=== PATIENT | female | born 1985 | race Caucasian/White ===

== ENCOUNTER 2021-02-13 10:43 | Outpatient (REF) | payer BC, SELFPAY ==
[2021-02-13 14:07] LABS: Calculated LDL 138 mg/dL (<100); Cholesterol 228 mg/dL (<200); HDL Cholesterol 70 mg/dL (40-60); Triglyceride 102 mg/dL (<150)
== END 2021-02-13 10:44 | disposition home or self-care (01) ==
LOC: NCHCN 10:43
PROVIDERS: Visit Provider Family Medicine
DX: Z00.00 Encounter for general adult medical examination without abnormal findings (principal); Z13.220 Encounter for screening for lipoid disorders
CPT/HCPCS: 80061

== ENCOUNTER 2022-05-07 11:00 | Outpatient (REF) | payer SELFPAY ==
--- NOTE | 2022-05-07 16:45 | PAPFT_PTH ---
PATIENT: Catrina Braun LOC: [facility] U#:[id number] AGE/SX: 36/F ROOM: RE05/07/[address]: Feng Naranjo : 1985 BED: DIS: 05/07/2022 SPEC #: [id number] RECD: 05/08/22 12:46 STATUS: LENORA REMendel #: [id number] MARY: 05/07/22 16:[address]: Fegn Naranjo DEPT: [facility] Cytology RECD BY: Juanis Arce Tissues: 1 - CX/ENDOCX FOR PAP SMEARS Procedures: PAP THIN PREP/UVM Screening HPV DNA PROBE Comments: [id number]
== END 2022-05-07 11:01 | disposition home or self-care (01) ==
LOC: NCHCN 11:00
PROVIDERS: Visit Provider Family Medicine
DX: Z00.00 Encounter for general adult medical examination without abnormal findings (principal); Z12.4 Encounter for screening for malignant neoplasm of cervix
CPT/HCPCS: 88142; 87624

== ENCOUNTER 2022-06-25 09:23 | Outpatient (REF) | payer SELFPAY ==
--- NOTE | 2022-06-25 09:10 | ENDO_PTH ---
PATIENT: Catrina Braun LOC: [facility] U#:[id number] AGE/SX: 36/F ROOM: RE06/25/[address]: Lorna Sandoval : 1985 BED: DIS: 06/25/2022 SPEC #: [id number] RECD: 06/25/22 12:14 STATUS: LENORA CARTER #: [id number] MARY: 06/25/22 09:[address]: Lorna Sandoval DEPT: Surgical Specimen RECD BY: Juanis Arce Tissues: 1 - ENDOCERVICAL BX/CURRETTE 2 - CERVICAL BIOPSY Procedures: GROSS AND MICRO LEVEL 4 IMMUNOPEROXIDASE STAIN P16 IPEX Comments: [id number]
== END 2022-06-25 09:24 | disposition home or self-care (01) ==
LOC: LBN 09:23
PROVIDERS: Visit Provider Obstetrics & Gynecology Gynecology
DX: N87.1 Moderate cervical dysplasia (principal); N72 Inflammatory disease of cervix uteri; R87.612 Low grade squamous intraepithelial lesion on cytologic smear of cervix (LGSIL)
CPT/HCPCS: 88305; 88342; 88361

== ENCOUNTER 2022-12-24 12:38 | Outpatient (CLI) | payer OTHER, SELFPAY ==
[2022-12-24 12:39] LABS: Panorama Kit Sent via Fed Ex
[2022-12-24 12:45] LABS: Abs Immature Grans 0.02 10^3/uL (0.0-0.06); Absolute Basophil Count 0.05 10^3/uL (0.0-0.2); Absolute Eosinophil Count 0.05 10^3/uL (0.0-0.7); Absolute Lymphocyte Count 2.14 10^3/uL (1.2-3.4); Absolute Monocyte Count 0.49 10^3/uL (0.1-0.8); Absolute Neutrophil Count 5.09 10^3/uL (1.2-6.7); Basophils % 0.6; Eosinophils % 0.6; HCT 36.1 % (36.0-46.0); HGB 12.5 g/dL (11.2-15.7); Immature Grans % 0.3; Lymphocytes % 27.3; MCH 30.6 pg (27.0-33.0); MCHC 34.6 % (32.0-36.0); MCV 88 fL (80-95); MPV 9.9 fL (8.0-11.0); Monocytes % 6.3; Neutrophils % 64.9; Platelet Count 270 10^3/uL (130-400); RBC 4.09 10^6/uL (3.93-5.22); RDW 12.8 % (11.7-14.6); RDW-SD 41.3 fL; WBC 7.84 10^3/uL (4.4-10.8)
[2022-12-25 08:48] LABS: Hepatitis B Surface Ag Negative (Negative)
[2022-12-25 09:45] LABS: HIV-1/2 Ag & Ab Screen Negative (Negative)
[2022-12-25 10:11] LABS: Hepatitis C Ab w Rflx HCV PCR Negative (Negative)
[2022-12-25 10:45] LABS: Varicella IgG Antibody Negative (See Note)
[2022-12-25 10:49] LABS: Rubella IgG Ab (UVM) Positive (See Note)
[2022-12-26 14:40] LABS: Syphilis IgG w/Reflex Nonreactive (Nonreactive)
== END 2022-12-24 12:39 | disposition home or self-care (01) ==
LOC: LBO 12:39
PROVIDERS: PCP Family Medicine; Visit Provider Advanced Practice Midwife
DX: O09.511 Supervision of elderly primigravida, first trimester (principal); Z3A.13 13 weeks gestation of pregnancy
CPT/HCPCS: 36415; 86787; 86803; 86850; 86900; 86901; 87340; 87389; 85025; 86762; 86780

== ENCOUNTER 2022-12-24 14:02 | Outpatient (REF) | payer OTHER, SELFPAY ==
[2022-12-24 19:56] LABS: *AMPHETAMINES SCREEN URINE Negative (Negative); *BARBITURATES SCREEN URINE Negative (Negative); *BENZODIAZEPINES SCREEN URINE Negative (Negative); Cannabinoids THC Negative (Negative); Cocaine Screen,Urine Negative (Negative); METHADONE URINE SCREEN Negative (Negative); OPIATES URINE SCREEN Negative (Negative)
[2022-12-24 20:09] LABS: Tricyclic Antidepressants Negative (Negative)
[2022-12-31 19:14] LABS: Buprenorphine Negative ng/mL (Cutoff: 5.0); Norbuprenorphine Negative ng/mL (Cutoff: 2.5)
== END 2022-12-24 14:03 | disposition home or self-care (01) ==
LOC: LBN 14:02
PROVIDERS: PCP Family Medicine; Visit Provider Advanced Practice Midwife
DX: O09.511 Supervision of elderly primigravida, first trimester (principal); Z3A.13 13 weeks gestation of pregnancy
CPT/HCPCS: 80307; 80348; 87086

== ENCOUNTER 2023-02-21 08:59 | Outpatient (REF) | payer OTHER, SELFPAY ==
[2023-02-22 13:56] LABS: Chlamydia Result Negative (Negative); GC Result Negative (Negative)
== END 2023-02-21 09:00 | disposition home or self-care (01) ==
LOC: LBN 08:59
PROVIDERS: PCP Family Medicine; Visit Provider Advanced Practice Midwife
DX: Z34.92 Encounter for supervision of normal pregnancy, unspecified, second trimester (principal); Z3A.21 21 weeks gestation of pregnancy; Z11.3 Encounter for screening for infections with a predominantly sexual mode of transmission
CPT/HCPCS: 87491; 87591

== ENCOUNTER 2023-04-05 10:45 | Outpatient (CLI) | payer OTHER, SELFPAY ==
[2023-04-05 08:23] LABS: HCT 33.9 % (36.0-46.0); HGB 11.5 g/dL (11.2-15.7); MCH 30.5 pg (27.0-33.0); MCHC 33.9 % (32.0-36.0); MCV 90 fL (80-95); Platelet Count 252 10^3/uL (130-400); RBC 3.77 10^6/uL (3.93-5.22); RDW 13.5 % (11.7-14.6); RDW-SD 44.9 fL; WBC 9.65 10^3/uL (4.4-10.8)
[2023-04-05 08:36] LABS: Glucose,1 Hr (Glucola) 131 mg/dL (80-140)
== END 2023-04-05 10:46 | disposition home or self-care (01) ==
LOC: LBO 10:45
PROVIDERS: PCP Family Medicine; Visit Provider Advanced Practice Midwife
DX: O09.512 Supervision of elderly primigravida, second trimester (principal); Z3A.27 27 weeks gestation of pregnancy
CPT/HCPCS: 36415; 82950; 85027

== ENCOUNTER 2023-05-29 10:21 | Outpatient (REF) | payer OTHER, SELFPAY ==
[2023-05-29 11:00] LABS: *AMPHETAMINES SCREEN URINE Negative (Negative); *BARBITURATES SCREEN URINE Negative (Negative); *BENZODIAZEPINES SCREEN URINE Negative (Negative); Cannabinoids THC Negative (Negative); Cocaine Screen,Urine Negative (Negative); METHADONE URINE SCREEN Negative (Negative); OPIATES URINE SCREEN Negative (Negative)
[2023-05-29 11:01] LABS: Tricyclic Antidepressants Negative (Negative)
[2023-06-04 08:20] LABS: Buprenorphine Negative ng/mL (Cutoff: 5.0); Norbuprenorphine Negative ng/mL (Cutoff: 2.5)
== END 2023-05-29 10:22 | disposition home or self-care (01) ==
LOC: LBN 10:21
PROVIDERS: PCP Family Medicine; Visit Provider Advanced Practice Midwife
DX: Z34.93 Encounter for supervision of normal pregnancy, unspecified, third trimester (principal)
CPT/HCPCS: 80307; 80348

== ENCOUNTER 2023-06-07 08:51 | Outpatient (REF) | payer OTHER, SELFPAY | END 2023-06-07 08:52 | disposition home or self-care (01) | LOC: LBN 08:51 | PROVIDERS: PCP Family Medicine; Visit Provider Advanced Practice Midwife | DX: Z34.93 Encounter for supervision of normal pregnancy, unspecified, third trimester (principal); Z36.85 Encounter for antenatal screening for Streptococcus B; Z3A.36 36 weeks gestation of pregnancy | CPT/HCPCS: 87081 ==

== ENCOUNTER → 2023-07-05 01:34 | Outpatient (CLI) | payer OTHER, SELFPAY ==
--- NOTE | 2023-07-05 07:15 | DI.US_ITS ---
Exam(s) US OB ELIO WEIGHT EXAM: US OB ELIO WEIGHT CLINICAL HISTORY: 41 wks, POST DATES, ELDERLY PRIMIGRAVIDA, O48.0, O09.519. TECHNIQUE: Transabdominal obstetrical ultrasound performed. COMPARISON: US POCUS EXAM from 11/22/2022 US US OB 2-3 TRIMESTER from 02/13/2023 FINDINGS:: Number of fetuses: One. position: Vertex. Placental location: Anterior no evidence of previa. BIOMETRIC DATA: BPD: 100mm = 41+1 weeks HC: 356mm = 41+4 weeks AC: 370mm = 40+ 6 weeks FL: 80 mm = 40+ 6 weeks EFW: 4262 Gms = 85% Composite Age: 40 1+1 weeks JACKI: 01 July 2023 Heart Rate: 133BPM Amniotic fluid index: 13.5 cm. Amount of fluid is visually within normal limits. IMPRESSION: size and weight are within the expected range. Post dates. DATA REPOSITORY:
== END ==
PROVIDERS: PCP Family Medicine; Visit Provider Advanced Practice Midwife
DX: O09.519 Supervision of elderly primigravida, unspecified trimester (principal); O48.0 Post-term pregnancy
CPT/HCPCS: 76816

== ENCOUNTER 2023-07-05 09:01 | Outpatient (CLI) | payer OTHER, SELFPAY ==
[2023-07-05 09:49] VITALS: BP 133/92; PULSE 76; TEMP 36.8
[2023-07-05 10:08] VITALS: BP 133/92; PULSE 76
[2023-07-05 10:30] VITALS: BP 127/84; PULSE 82
--- NOTE | 2023-07-05 11:15 | W.OBNST ---
Date of service: 07/05/23 Time of Service: 10:45 NST Evaluation Reason for NST Reasons for Nonstress Test: POSTDATES Gestational Age Gestational Age in Weeks and Days: 40 Weeks and 6Days Test and Monitor Explained Test/Monitor Explained: Test Explained, Monitor Explained and Patient Verbalized Understanding Vital Signs Blood Pressure: 133/92 Pulse: 76 Temperature: 98.2 F Urine Results Urine Protein: Negative Urine Ketones: Negative Urine Glucose: Negative Urine Blood: Positive NST Information Date on Monitor: 07/05/23 Time on Monitor: 09:50 Date off Monitor: 07/05/23 Time off Monitor: 10:28 Total Time on Monitor: 38 NST Interventions: PO Hydration NST Evaluation Patient States Movement: Present FHR Baseline: 135 Variability: Moderate 6-25 bpm Accelerations: 15x15 Decelerations: None NST Results: Reactive Note Ultrasound Done: N/A. NST Note Note: ELIO today normal range, EFW 4200. IOL scheduled for 07/13/23. Membranes swept today. Repeat BP 127/84. NST Reviewed and Verified by: Shaniqua Rider
[2023-07-05 11:16] VITALS: BP 133/92; PULSE 76; TEMP 36.8
== END 2023-07-05 10:35 | disposition home or self-care (01) ==
LOC: BCD 09:02 → OBS 09:48
PROVIDERS: PCP Family Medicine; Visit Provider Advanced Practice Midwife
DX: O48.0 Post-term pregnancy (principal); Z3A.40 40 weeks gestation of pregnancy
CPT/HCPCS: 59025

== ENCOUNTER 2023-07-09 11:20 | Outpatient (CLI) | payer OTHER, SELFPAY ==
[2023-07-09 14:14] VITALS: BP 132/89; PULSE 87; TEMP 36.8
[2023-07-09 14:25] VITALS: BP 132/89; PULSE 87
--- NOTE | 2023-07-09 15:36 | PDOC.NST_ITS ---
Date of service: 07/09/23 Time of Service: 15:36 NST Evaluation Reason for NST Reasons for Nonstress Test: POSTDATES Gestational Age Gestational Age in Weeks and Days: 41 Weeks and 3Days Test and Monitor Explained Test/Monitor Explained: Test Explained, Monitor Explained and Patient Verbalized Understanding Vital Signs Blood Pressure: 132/89 Pulse: 87 Temperature: 98.2 F NST Information Date on Monitor: 07/09/23 Time on Monitor: 14:05 Date off Monitor: 07/09/23 Time off Monitor: 14:48 Total Time on Monitor: 43 NST Interventions: None NST Evaluation Patient States Movement: Present FHR Baseline: 135 Variability: Moderate 6-25 bpm Accelerations: 15x15 Decelerations: None NST Results: Reactive Note Ultrasound Done: N/A. NST Note Note: Catrina is here for NST for post dates. She was considering induction of labor t omorrow at 41 +4 days but is considering waiting until 07/12. We discussed risks of postdates including meconium fluid and placental insufficiency and risks and disadvabtages of induction. SVE performed. 2 cms/60%/-1. Catrina will call tomorrow at 1200 and will schedule induction at that time. NST Reviewed and Verified by: Shaniqua Treadwell
[2023-07-09 15:39] VITALS: BP 132/89; PULSE 87; TEMP 36.8
== END 2023-07-09 15:02 | disposition home or self-care (01) ==
LOC: BCD 11:23 → OBS 14:12
PROVIDERS: PCP Family Medicine; Visit Provider Advanced Practice Midwife
DX: O48.0 Post-term pregnancy (principal); Z3A.41 41 weeks gestation of pregnancy
CPT/HCPCS: 59025

== ENCOUNTER 2023-07-12 04:11 | Inpatient (IN) | payer OTHER, SELFPAY ==
[2023-07-12] VITALS (12 sets, daily range): BP systolic 113–161; BP diastolic 65–91; PULSE 74–111; RESP 18; TEMP 36.5–37.3
[2023-07-12 04:58] LABS: HCT 37.2 % (36.0-46.0); HGB 12.6 g/dL (11.2-15.7); MCH 29.7 pg (27.0-33.0); MCHC 33.9 % (32.0-36.0); MCV 88 fL (80-95); MPV 11.1 fL (8.0-11.0); Platelet Count 240 10^3/uL (130-400); RBC 4.24 10^6/uL (3.93-5.22); RDW 14.2 % (11.7-14.6); RDW-SD 45.6 fL; WBC 8.48 10^3/uL (4.4-10.8)
--- NOTE | 2023-07-12 06:29 | HPE_ITS ---
Date of service: 07/12/23 Time of Service: 06:29 Assessment and Plan Assessment and plan (1) Post-dates : Status: Acute Assessment and plan: admit to the Center. Comfort measures. Catrina requested to use the tub. (2) Spontaneous onset of labor: Status: Acute Assessment and plan: Comfort measures. Anticipate OB-HPI Labor/Delivery History of Present Illness Reason for Visit: RULE OUT LABOR Chief Complaint: Uterine Contractions. JACKI Calculator Estimated Delivery Date Method Current WG Current Estimate 06/29/23 LMP (Certain) 41w 6d Other Estimates 06/27/23 Ultrasound #1 42w 1d Comments: Catrina called at 0300 and reported contractions every 4-5 minutes. History of Present Expected Delivery Route/Plan - CNM FOB - Tom Braun (first child) BB no circ Varicella non immune, pt accepts vaccine PP GBS negative Specific Issues/Plan 1. AMA, requests cfDNA, declines Level II US and MFM visit, declines CF/SMA and AFP 1a. cfDNA results: low risk male 2. Covid at 10 weeks gestation, due to Nullip, >35 and COVID will take low dose ASA 3. Colpo with LGSIL 06/2022, declines pap will do PP 4. Anatomy scan reveals 5 mm RESIDENT INSPECTOR, a benign finding when cfDNA is low risk. Discussed w/pt, declines level 2 5. Significant hemorrhoids: OTC remedies, ice, topical spray, Proctofoam, consult ordered to general surgery, consider IOL >39 wks 5a. Hemorrhoids have improved and Catrina does not feel that an induction is indicated at this time. Assessment: History Reviewed & Current PFSH All Active Problems (Updated 07/12/23 @ 06:31 by Shaniqua Treadwell CNM) Spontaneous onset of labor (Acute) Post-dates (Acute) Acute hemorrhoid (Acute) Susceptible to varicella (non-immune), currently (Acute) Elderly primigravida (Acute) (Acute) Abnormal Papanicolaou smear of cervix with positive human papilloma virus (HPV) test (Acute) 04/2022. Colpo bx 06/2022: SUKUMAR-2. Patient wishes to defer LEEP until after anticipated . Medical History (Updated 07/12/23 @ 06:31 by Shaniqua Treadwell CNM) Missed menses Family History (Updated 12/24/22 @ 11:44 by Shaniqua Rider CNM) Mother Asthma Cancer Hypertension Maternal Grandmother Cancer basil cell carcinoma of fact Paternal Grandfather Dementia Maternal Grandfather Colon cancer Father Depression Diabetes Hypertension Other Breast cancer Social History Smoking/Tobacco Use Status: Never Smoking risk assessment performed?: Yes Alcohol Intake: current Alcohol Intake frequency: 0-2 drinks per day Counseling given: Yes (by PCP at [facility] Drug use: Never Substance use type: does not use Household members: spouse Housing: house Number of Children: 0 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 Do you feel safe at home: Yes Do you feel safe in your relationship?: Yes History History 1 Para 0 Hx # Term Pregnancies 0 Multiple births 0 Hx # Pregnancies 0 Ectopic pregnancies 0 AB induced 0 Hx Number of Living Children 0 AB spontaneous 0 Meds Allergies and Home Medications Allergies Allergy/AdvReac Type Severity Reaction Status Date / Time No Known Drug Allergies Allergy Verified 07/05/23 09:46 Home Medications Medication Instructions Recorded Confirmed Type folic acid 0.8 mg capsule 0.8 mg PO DAILY 06/25/22 07/12/23 History prenat.vits,jenaro,idf-naoa-lfbgm 1 tab PO DAILY 11/16/22 07/12/23 History aspirin 81 mg tablet,delayed 81 mg PO DAILY 02/21/23 07/12/23 History release (Adult Low Dose Aspirin) benzocaine 20 % mucosal aerosol 1 applic mucous membrane TID #57 06/07/23 07/12/23 Rx spray grams hydrocortisone 1 %-pramoxine 1 % 1 applic MD QID #10 grams 06/07/23 07/12/23 Rx rectal foam (Proctofoam HC) lidocaine 3 %-hydrocortisone 2.5 % 1 applic MD QD-BID PRN hemorrhoids 06/14/23 07/12/23 Rx (7 gram) rectal gel #7 grams Exam Physical Exam Vital signs: Temp Pulse Resp BP 97.7 F 80 18 126/87 07/12/23 04:34 07/12/23 04:34 07/12/23 04:34 07/12/23 04:34 Constitutional Constitutional: no acute distress and mild distress Detailed Labor and Delivery Exam Dilation: 5 Effacement (%): 100 station: -1 Cervix position: mid Consistency: medium Leiva Score: Cervical Points Exam 0 1 2 3 Dilation Closed 1-2cm 3-4 cm 5-6cm Effacement 0-30% 40-50% 60-70% 80% Consistency Firm Medium Soft Station -3 -2 -1,0 +1,+2 Position Posterior Mid Anterior Amniotic Membrane Status: Intact Monitor Mode: External Contraction Frequency(min): every 4-6 Contraction Duration(sec): 40-60 Contraction Intensity: Mild/Moderate Fetus A Heart Rate Baseline: 130 Monitor Accelerations: 15 X 15 Monitor Decelerations: None Variability: Moderate (6-25 BPM) Categories: Category I Respiratory Exam Respiratory Exam: Normal Cardiovascular Exam Cardiovascular Exam: Normal Abdominal Exam Abdominal Exam: Normal Exam Exam: Normal Extremities Exam Extremities Exam: Normal Skin Exam Skin Exam: Normal Psychiatric Exam Psychiatric Exam: Normal Results Abnormal Lab Findings: Abnormal Labs 07/12/23 04:45 MPV 11.1 H Risk Assessment Risk for Shoulder Dystocia Historical/Initial OB: NEGATIVE FOR: Pelvic Abnormality, Pre- BMI>30, Previous Shoulder Dystocia or Previous Macrosomia 36 Weeks: NEGATIVE FOR: Current Gestational DM, EFW>4500gms or Maternal Weight Gain>40lbs 40 Weeks: POSTIVE FOR: Post Dates; NEGATIVE FOR: EFW> 4500 gms or Maternal Weight Gain >40lb Increased Risk?: Yes Delivery Plan @ 40 wks: IOL at 41w5d as patient declines sooner. KH Risk for Pre-Eclampsia Daily Dose ASA Indicated: Yes Date Initiated/Initials: taking aspirin Yes, if one or more: NEGATIVE FOR: Hx Pre-E/Gest HTN, Chronic HTN, Multiple Gestation, Pre-gestational DM, Renal Disease, Systemic Lupus or APA Syndrome Yes, if 2 or more: POSITIVE FOR: Nulliparity and Age>= 35 yrs Risk for Post- Hemorrhage Initial: NEGATIVE FOR: Multiple Gestation, Previous PPH, Known Clotting Deficiency, Grand Multiparity or Anticoagulation 40 Weeks: NEGATIVE FOR: Anemia, hgb<10, Low platelets (thrombocytopenia), Gestation HTN or Pre-E, Polyhydraminios or EFW>4500gms At Risk?: No Risks Reviewed Risks Reviewed Upon Admission: Yes
--- NOTE | 2023-07-12 11:58 | W.PM.OBNL1 ---
Date of service: 07/12/23 Time of Service: 11:58 Pelvic Exam Dilation: 6 Effacement (%): 100 station: -2 Cervix Position: mid Contractions Monitor Mode: External Contraction Frequency(min): q2-4 Contraction Duration(sec): 50-70 Intensity: Moderate Fetus A Monitor: External (US) Heart Rate Baseline: 140 Variability: Moderate (6-25 BPM) Categories: Category I Accelerations: Present Decelerations: None Amniotic Membrane Status: Intact Assessment and Plan Assessment and plan (1) Spontaneous onset of labor: Status: Acute Assessment and plan: A: G1 @ 41+6 wks, spontaneous labor GBS negative, low risk for SD and PPH Category 1 tracing P: Has advanced to 6/100% vtx -2, intact membranes w/soft forebag Coping well with contractions, providing effective support Discussed AROM to encourage progress, pt considering Continue intermittent auscultation, comfort measures as pt desires Reassess for progress this afternoon Anticipate (2) Post-dates : Status: Acute Qualifiers: Post-term type: 40-42 weeks gestation Qualified Code(s): O48.0 - Post-term Objective Vital Signs Reviewed: Yes Objective Narrative Objective Narrative: [place] BP noted, baseline diastolic has been 80's, Pt in active labor and unmedicated, tammy observe for BP trends Afebrile, asymptomatic (pt denies GARIBAY, visual changes, RUQ pain, edema) Subjective Interval history since last seen: Contractions are painful but manageable, using nitrous and moving around the room, using tub intermittently, no nausea or vomiting. Results Hemoglobin/Hematocrit: Hgb 12.6 g/dL (11.2-15.7) 07/12/23 04:45 Hct 37.2 % (36.0-46.0) 07/12/23 04:45 Abnormal Lab Findings: Abnormal Labs 07/12/23 04:45 MPV 11.1 H
--- NOTE | 2023-07-12 17:46 | W.PM.OBNL1 ---
Date of service: 07/12/23 Time of Service: 17:47 Informed Consent Informed Consent: Other (AROM of forebag) Pelvic Exam Dilation: 8.5 Effacement (%): 100 station: -1 Position: DUNG Contractions Monitor Mode: External Contraction Frequency(min): q2-4 Intensity: Moderate/Strong Fetus A Monitor: External (US) Heart Rate Baseline: 140 Variability: Moderate (6-25 BPM) Categories: Category I Accelerations: Present Decelerations: None Amniotic Membrane Status: Ruptured Rupture Method: Artifical Amniotic Fluid: Clear Amount: moderate Date of Membrane Rupture: 07/12/23 Time of Membrane Rupture: 17:37 Assessment and Plan Assessment and plan (1) Spontaneous onset of labor: Status: Acute Assessment and plan: A: Active labor, transition Category 1 tracing, clear fluid Coping well, using nitrous P: Anticipate Objective Vital Signs Reviewed: Yes Objective Narrative Objective Narrative: Pt has been in and out of the tub, different positions Now resting LLP on bed with pnut ball Began leaking pink tinged fluids Consented to AROM of forebag for clear fluid Subjective Interval history since last seen: Contractions are very intense now, feeling occasional rectal pressure
[2023-07-12] MEDS: Oxytocin 10 UNITS/ML VIAL IM (20:40)
[2023-07-12] MEDS: miSOPROStol 200 MCG TAB 600 MCG SL (21:00)
[2023-07-12] MEDS: Benzocaine 20% 60 ML CAN TP (21:20)
--- NOTE | 2023-07-12 22:15 | W.OBDELIVERY ---
Date of service: 07/12/23 Time of Service: 22:15 OB Labor/ Delivery Information Baby A Delivery Delivery Method: Spontaneaous Presentation: Cephalic Cephalic Position: Vertex Vertex Position: Left Occipital Anterior Breech Position: N/A Cord Description-Baby A: 3 Vessels, Nuchal Cord, Tight and Reduced (reduced over both shoulders and unwound from body) Amniotic Fluid: Clear (terminal meconium noted) Estimated Blood Loss: 700 QBL Delivery Outcome: Liveborn Infant Transferred: Remains with Mother Note: Pt began to progress well after AROM of forebag done, stayed in bed in LLP position with pnut ball for awhile then switched to pillows between knees, spontaneous urges to push increased, pt requested exam and found to be fully dilated and +2, coached and supported pushing begun after 2nd stage huddle completed. Excellent maternal efforts resulted in of vigorous male , snug nuchal cord noted that could not be reduced overhead, was pushed over shoulders as they emerged with ease and then cord was unwound from around infant's trunk x1, bulb suction on field then to mother's arms immediately. Pitocin 10 units IM given, cord ceased pulsation and was clamped then cut by FOB, cord blood collected and Bauman placenta delivered intact with 3VC. Fundus palpated firm but was above umbilicus, straight cath done for 200 ml clear yellow urine, slow but omewhat persistent vaginal bleeding noted during laceration repair, misoprostel 600 mcg PO given. 1st degree perineal laceration repaired with 3.0 Vicryl under local anesthesia, left side wall laceration noted to be superficial, 2 stitches placed to approximate edges. Fundus remained firm below umbilicus, bleeding slowed to expected lochia rubra, vaginal sweep performed without clots present. Strong family bonding observed, apgars 8/9, weight 4435 gms. Providers Nurse Mold Repair Technician: Kaycee Rincon Nurse: Milena Alves Nurse: Maya Crump Labor/Delivery Information Number of Babies in Womb: 1 Steroids Given: None Reason Steroids Not Administered: N/A Group Beta Strep: Negative Antibiotics Administered: No Maternal Complications: Prolonged Labor(>20hrs) Shoulder Dystocia: No Stages of Labor Onset of Labor Date: 07/11/23 Onset of Labor Time: 19:30 Complete Dilatation Date: 07/12/23 Complete Dilatation Time: 20:05 Labor - Stage 1 Duration: 24 hours and 35 minutes ROM Baby A: 07/12/23 ROM Baby A: 17:30 ROM Total Time- Baby A: [id number] Delivery Date-Baby A: 07/12/23 Infant Delivery Time-Baby A: 20:48 Labor Stage 2 Duration: 43 minutes Placenta Delivery Date-Baby A: 07/12/23 Placenta Delivery Time-Baby A: 20:56 Labor-Stage 3 Duration: 8 minutes Total Length of Labor-Baby A: 25 hours and 18 minutes Placenta Cultured: No Placenta Status: Delivered Baby A Infant Gender: Male Gestational Status: Term (39-41.6 wks) Gestational Age in Weeks/Days: 41 Weeks and 6 Days weight: 9 lb 12.44 oz Weight Comment: 4435 gms Score-1 Minute Interval(Baby A) Heart Rate-1 minute: 100 BPM or Greater Respiratory Effort- 1 minute: Spontaneous/Strong Cry Muscle Tone-1 minute: Minimal Flexion/Extension Reflex Response-1 minute: Prompt Response Color-1 minute: Bluish Hands or Feet Total Score-1 minute: 8 Score-5 Minute Interval(Baby A) Heart Rate- 5 minute: 100 BPM or Greater Respiratory Effort-5 minute: Spontaneous/Strong Cry Muscle Tone-5 minute: Active Movement Reflex Response-5 minute: Prompt Response Color-5 minute: Bluish Hands or Feet Total Score- 5 minute: 9 Procedure Procedures: Cord Blood Collection Interventions Repair of Laceration Type: Perineal, Laceration Extension: First Degree. Sponge Count Correct: Vaginal Sweep Peformed, Sharp Count Correct: Yes.
[2023-07-12] MEDS: Ibuprofen 600 MG TAB PO (23:07)
[2023-07-12] MEDS: Acetaminophen 325 MG TAB 650 MG PO (23:08)
[2023-07-13 00:08] VITALS: BP 142/86; PULSE 91
[2023-07-13] MEDS: Lidocaine 1% Multi-Dose 20 ML VIAL IJ (00:32)
[2023-07-13 01:09] VITALS: BP 91/76; PULSE 108; RESP 17; TEMP 36.8; O2SAT 98
--- NOTE | 2023-07-13 09:24 | OBPPV_ITS ---
Date of service: 07/13/23 Time of Service: 09:25 Assessment and Plan Assessment and plan (1) Term delivered: Status: Acute Assessment and plan: A: PPD#1, nml recovery Satisfied with experience off to a good start P: Pt plans discharge tomorrow Encouraged to nap and rest BCM is undecided, considering IUD Offer varicella vaccine prior to discharge Subjective Subjective Patient comments: No complaints, Pain well controlled, Tolerating diet and Flatus present Patient's Mood: happy [place] baby status: Doing well, Nursing well, Rooming in and Strong Bonding Observed [place] feeding status: Exclusively breast feeding Exam Physical Exam Vital signs: Temp Pulse Resp BP Pulse Ox 98.2 F 108 H 17 91/76 L 98 07/13/23 01:07/13/23 01:07/13/23 01:07/13/23 01:07/13/23 01:09 Vital Signs Reviewed: Yes Constitutional Constitutional: no acute distress and cooperative HEENT Exam HEENT Exam: Normal Neck Exam Neck Exam: Normal Breast Exam Bilateral: Breast Exam: Normal and Soft Nipple Exam: Normal and Uninjured Respiratory Exam Respiratory Exam: Normal Cardiovascular Exam Cardiovascular Exam: Normal Abdominal Exam Abdomen: Other (nontender, soft) Fundal Exam Fundus: Below Umbilicus and Firm Rectal Exam Rectal Exam: Hemmorhoids Exam Perineum: Repair Intact Extremities Exam Extremity Exam: Normal, Full ROM and Warm to Touch Back/Spine/Pelvis Exam Back Exam: Normal Skin Exam Skin Exam: Normal Neurological Exam Neurological Exam: Normal Psychiatric Exam Psychiatric Exam: Normal
[2023-07-13] MEDS: Acetaminophen 325 MG TAB 650 MG PO ×3 (10:27→23:02)
[2023-07-13] MEDS: Docusate Sodium 100 MG CAP PO (10:28)
[2023-07-13] MEDS: Hamamelis Leaf/Glycerin 100 EACH BOX PR (10:28)
[2023-07-13] MEDS: Ibuprofen 600 MG TAB PO ×3 (10:29→23:02)
[2023-07-13 10:37] VITALS: BP 125/91; PULSE 99; RESP 17; TEMP 36.9; O2SAT 99
[2023-07-13 13:16] VITALS: BP 122/85; PULSE 95; RESP 17; TEMP 36.8
[2023-07-13 20:10] VITALS: BP 126/88; PULSE 98; RESP 17; TEMP 36.8; O2SAT 99
[2023-07-14] MEDS: Ibuprofen 600 MG TAB PO (05:49)
[2023-07-14] MEDS: Acetaminophen 325 MG TAB 650 MG PO (05:49)
[2023-07-14 10:07] VITALS: BP 130/87; PULSE 83; RESP 17; TEMP 36.6
--- NOTE | 2023-07-14 10:52 | OBPPV_ITS ---
Date of service: 07/14/23 Time of Service: 10:52 Assessment and Plan Assessment and plan (1) Term delivered: Status: Acute Assessment and plan: A: PPD#2, nml recovery P: Discharge today Written instructions reviewed and given to pt BCM is undecided, considering IUD Offer varicella vaccine prior to discharge PAP will be due at 6-8 wks F/up at 2 & 6 wks with retail operations specialist Subjective Subjective Patient comments: No complaints, Pain well controlled, Tolerating diet and Flatus present Patient's Mood: happy [place] baby status: Doing well, Nursing well, Rooming in and Strong Bonding Observed [place] feeding status: Exclusively breast feeding Exam Physical Exam Vital signs: Temp Pulse Resp BP Pulse Ox 97.9 F 83 17 130/87 99 07/14/23 10:07/14/23 10:07/14/23 10:07/14/23 10:07/13/23 20:10 Vital Signs Reviewed: Yes Constitutional Constitutional: no acute distress and cooperative HEENT Exam HEENT Exam: Normal Neck Exam Neck Exam: Normal Breast Exam Bilateral: Breast Exam: Normal and Soft Respiratory Exam Respiratory Exam: Normal Cardiovascular Exam Cardiovascular Exam: Normal Abdominal Exam Abdomen: Other (nontender, soft) Fundal Exam Fundus: Below Umbilicus and Firm Rectal Exam Rectal Exam: Hemmorhoids Exam Perineum: Normal and Repair Intact Extremities Exam Extremity Exam: Normal, Full ROM and Warm to Touch Back/Spine/Pelvis Exam Back Exam: Normal Skin Exam Skin Exam: Normal Neurological Exam Neurological Exam: Normal Psychiatric Exam Psychiatric Exam: Normal
--- NOTE | 2023-07-14 10:55 | W.PM.OBDISCH ---
Date of service: 07/14/23 Time of Service: 10:55 DS: Diagnosis Discharge Diagnosis (1) Term delivered: Status: Acute Discharge Plan Disposition Patient Disposition: Home Condition: Good Discharge Details Reason For Visit: RULE OUT LABOR Admit Date/Time: 07/12/23 04:11 Admit Provider: Shaniqua Treadwell Attending Provider: Kaycee Rincon Primary Care Provider: Feng Naranjo Hospital Course Hospital Course: Admitted in labor, accomplished, nml course, discharge on PPD#2 Home Meds and New Rx's Prescriptions: No Action prenat.vits,jenaro,pxl-mblh-nroxo Tablet 1 tab PO DAILY benzocaine 20 % aerosol,spray 1 applic mucous membrane TID Qty: 57 1RF Proctofoam HC 1-1 % foam 1 applic PA QID Qty: 10 1RF lidocaine HCl-hydrocortison ac 3 %-2.5 % (7 gram) gel 1 applic PA QD-BID PRN (Reason: hemorrhoids) Qty: 7 0RF Discharge Instructions Additional Instructions: Please keep your 2 & 6 wk appt's with your midwives, if you prefer to have your appt via telehealth please let studio receptionist know ahead of time. Call for any and all concerns or questions. Stand Alone Forms: BC Instructions, BC Post Vaginal Deliver Activity:: Activity as Tolerated Equipment/Supplies:: No Equipment Needed Diet:: Normal Diet OB:DS Summary Summary Vaginal Delivery Method: Spontaneaous Episiotomy Description: None Laceration Description: Perineal Laceration Extension: First Degree Contraception Discussed Contraception Discussed: Yes Contraceptive Plan: Undecided, [place] Gender-Baby A: Male weight: 9 lb 12.44 oz Status at Discharge Functional status at discharge: independent ambulation Overall status at discharge: patient is progressing back to baseline Mental Status: mental status grossly normal Speech and Movement: speech and movement normal Mood: congruent mood Affect: normal affect Quality:SDOH Health Related Social Needs: No Data to Display Exam Physical Exam Vital signs: Temp Pulse Resp BP Pulse Ox 97.9 F 83 17 130/87 99 07/14/23 10:07 07/14/23 10:07 07/14/23 10:07 07/14/23 10:07 07/13/23 20:10 Vital Signs Reviewed: Yes Constitutional Constitutional: no acute distress and cooperative HEENT Exam HEENT Exam: Normal Neck Exam Neck Exam: Normal Breast Exam Bilateral: Breast Exam: Normal and Soft Respiratory Exam Respiratory Exam: Normal Cardiovascular Exam Cardiovascular Exam: Normal Abdominal Exam Abdomen: Other (nontender, soft) Fundal Exam Fundus: Below Umbilicus and Firm Rectal Exam Rectal Exam: Hemmorhoids Exam Perineum: Normal and Repair Intact Extremities Exam Extremity Exam: Normal, Full ROM and Warm to Touch Back/Spine/Pelvis Exam Back Exam: Normal Skin Exam Skin Exam: Normal Neurological Exam Neurological Exam: Normal Psychiatric Exam Psychiatric Exam: Normal PFSH All Active Problems (Updated 07/13/23 @ 09:26 by Kaycee Rincon) Term delivered (Acute) Acute hemorrhoid (Acute) Susceptible to varicella (non-immune), currently (Acute) Abnormal Papanicolaou smear of cervix with positive human papilloma virus (HPV) test (Acute) 04/2022. Colpo bx 06/2022: SUKUMAR-2. Patient wishes to defer LEEP until after anticipated . Medical History (Updated 07/13/23 @ 09:26 by Kaycee Rincon) Spontaneous onset of labor Post-dates Elderly primigravida Missed menses Family History (Updated 12/24/22 @ 11:44 by Shaniqua Rider CNM) Mother Asthma Cancer Hypertension Maternal Grandmother Cancer basil cell carcinoma of fact Paternal Grandfather Dementia Maternal Grandfather Colon cancer Father Depression Diabetes Hypertension Other Breast cancer Social History Smoking/Tobacco Use Status: Never Smoking risk assessment performed?: Yes Alcohol Intake: current Alcohol Intake frequency: 0-2 drinks per day Counseling given: Yes (by PCP at [facility] Drug use: Never Substance use type: does not use Household members: spouse Housing: house Number of Children: 0 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 Do you feel safe at home: Yes Do you feel safe in your relationship?: Yes History History 1 Para 0 Hx # Term Pregnancies 0 Multiple births 0 Hx # Pregnancies 0 Ectopic pregnancies 0 AB induced 0 Hx Number of Living Children 0 AB spontaneous 0 DS: Data Vitals/I&O Vitals and I&O: Vital Signs Temperature 97.9 F 07/14/23 10:07 Temperature Source Oral 07/14/23 10:07 Pulse 83 07/14/23 10:07 Pulse Rhythm Regular 07/13/23 20:10 Respiratory Rate 17 07/14/23 10:07 Respiratory Depth Normal 07/13/23 20:10 Blood Pressure 130/87 07/14/23 10:07 Blood Pressure Mean 101 07/14/23 10:07 Pulse Oximetry 99 07/13/23 20:10 Pain Level 2 07/13/23 20:10 Comment provider aware of bp, will check again in 4 hours 07/13/23 10:37 Intake & Output 07/13/23 07/13/23 07/14/23 11:59 23:59 11:59 Output Total 1300 / 1300 Balance -1300 / -1300 Output: Urine 1300 / 1300 Other: Urine Color Yellow Yellow
[2023-07-14] MEDS: Varicella Virus Vaccine (Live) 0.5 ML SC (15:33)
[2023-07-15 11:41] VITALS: BP 157/92; PULSE 96
[2023-07-15 12:03] VITALS: BP 134/89; PULSE 87
== END 2023-07-14 16:00 | disposition home or self-care (01) | DRG 833 ==
PROVIDERS: Admitting Provider Advanced Practice Midwife; PCP Family Medicine; Visit Provider Advanced Practice Midwife
DX: O48.0 Post-term pregnancy (principal)
CPT/HCPCS: 36415; 85027; 86850; 86900; 86901; 90716; J2590

== ENCOUNTER 2023-08-26 12:48 | Outpatient (REF) | payer OTHER, SELFPAY ==
--- NOTE | 2023-08-26 11:20 | PAPFT_PTH ---
PATIENT: Catrina Braun LOC: [facility] U#:[id number] AGE/SX: 37/F ROOM: RE08/26/[address]: Shaniqua Rider CNM : 1985 BED: DIS: 08/26/2023 SPEC #: [id number] RECD: 08/26/23 17:29 STATUS: LENORA REQ #: [id number] MARY: 08/26/23 11:[address]: Shaniqua Rider DEPT: [facility] Cytology RECD BY: Juanis Arce ENTERED: 08/26/23 17:30 SP TYPE: PAPFT OTHR DR: Feng Naranjo Tissues: 1 - CX/ENDOCX FOR PAP SMEARS Procedures: PAP THIN PREP/[facility] Screening HPV DNA PROBE Comments: [id number] (CHLAMYDIA/GC)
[2023-08-27 14:16] LABS: Chlamydia Result Negative (Negative); GC Result Negative (Negative)
== END 2023-08-26 12:49 | disposition home or self-care (01) ==
LOC: LBN 12:48
PROVIDERS: PCP Family Medicine; Visit Provider Advanced Practice Midwife
DX: Z12.4 Encounter for screening for malignant neoplasm of cervix (principal); Z11.51 Encounter for screening for human papillomavirus (HPV); Z11.3 Encounter for screening for infections with a predominantly sexual mode of transmission
CPT/HCPCS: 87491; 87591; 88142; 87624

== ENCOUNTER 2023-09-05 10:32 | Outpatient (REF) | payer OTHER, SELFPAY | END 2023-09-05 10:33 | disposition home or self-care (01) | LOC: LBN 10:32 | PROVIDERS: PCP Family Medicine; Visit Provider Advanced Practice Midwife | DX: N89.8 Other specified noninflammatory disorders of vagina (principal) | CPT/HCPCS: 87480; 87510; 87660 ==

== ENCOUNTER 2024-07-29 10:08 | Outpatient (REF) | payer OTHER, SELFPAY ==
--- NOTE | 2024-07-29 08:20 | PAPFT_PTH ---
PATIENT: Catrina Braun LOC: [facility] U#:[id number] AGE/SX: 38/F ROOM: RE07/29/[address]: Crystal De Los Santos NP : 1985 BED: DIS: 07/29/2024 SPEC #: [id number] RECD: 07/29/24 12:53 STATUS: LENORA REMendel #: [id number] MARY: 07/29/24 08:[address]: Crystal De Los Santos NP DEPT: [facility] Cytology RECD BY: Juanis Arce ENTERED: 07/29/24 12:53 SP TYPE: PAPFT OTHR DR: Feng Naranjo Tissues: 1 - CX/ENDOCX FOR PAP SMEARS Procedures: PAP THIN PREP/[facility] Screening HPV DNA PROBE Comments: [id number] (HPV 16 & 18/45)
== END 2024-07-29 10:09 | disposition home or self-care (01) ==
LOC: LBN 10:08
PROVIDERS: PCP Family Medicine; Visit Provider Nurse Practitioner Women's Health
DX: N39.3 Stress incontinence (female) (male) (principal); Z01.419 Encounter for gynecological examination (general) (routine) without abnormal findings; Z97.5 Presence of (intrauterine) contraceptive device; Z12.4 Encounter for screening for malignant neoplasm of cervix
CPT/HCPCS: 88142; 87624

== ENCOUNTER 2024-09-03 02:55 | Outpatient (CLI) | payer OTHER, SELFPAY | END 2024-09-03 02:56 | disposition home or self-care (01) | PROVIDERS: PCP Family Medicine; Visit Provider Advanced Practice Midwife | DX: Z39.1 Encounter for care and examination of lactating mother (principal) | CPT/HCPCS: 36415; 83655 ==